=== PATIENT | female | born 1950 | race Caucasian/White ===

== ENCOUNTER 2016-02-19 06:05 | Emergency (ER) | payer BC ==
[~2016-02-19] VITALS: Ht 165.1 cm; Wt 79.5 kg
[~2016-02-19 06:05] MED LIST: CALCIUM + D 5001 TAB PO; CARAFATE 1GM1 G PO; COZAAR50 MG PO; ESTROPIPATE PO; FLUOXETINE20 MG PO; FOSAMAX70 MG PO; HYZAAR 50-12.1 UDTAB PO; LISINOPRIL/HCTZ1 TA2 PO; NEXIUM20 MG PO; OMEGA 31000 MG PO; PRILOSEC 20MG20 MG PO; PROZAC 20MG20 MG PO; REQUIP 0.5MG0.5 MG PO; ZYRTEC10 MG PO
[2016-02-19 06:16] VITALS: TEMP 98.1
[2016-02-19 06:41] LABS: BASO # 0.1 (0.0-0.2); BASO % 0.9 % (0.0-2.0); EOS # 0.2 (0.0-0.7); EOS % 2.2 % (0-4.0); GRAN % 65.7 % (42.2-75.2); HEMOGLOBIN 12.7 g/dl (12.5-16.0); LYMPH # 1.9 (1.2-3.4); MEAN CELL VOLUME 89 fl (80.0-100.0); MEAN CORPUSCULAR HEMOGLOBIN 31 pg (27.0-31.0); MEAN CORPUSCULAR HGB CONC 34 g/dl (33.0-37.0); MONO # 0.5 (0.1-0.6); MONO % 5.9 % (1.7-9.3); PLATELET COUNT 247 K/mm3 (130-400); RED BLOOD COUNT 4.17 M/mm3 (4.10-5.30); REDCELL DISTRIBUTION WIDTH-CV 12.5 % (11.5-14.5); WHITE BLOOD COUNT 7.6 K/mm3 (4.8-10.8)
[2016-02-19 06:51] LABS: ADJUSTED CALCIUM 9.3 mg/dL (8.4-10.2); ALANINE AMINOTRANSFERASE 31 U/L (9-52); ALBUMIN 3.8 gm/dL (3.5-5.0); ALKALINE PHOSPHATASE 70 U/L (50-136); ANION GAP 11 mmol/L (7-16); BILIRUBIN,TOTAL 0.6 mg/dL (0.0-1.0); BLOOD UREA NITROGEN 11 mg/dL (7-17); CALCIUM 9.1 mg/dL (8.4-10.2); CARBON DIOXIDE 25 mmol/L (22-30); CHLORIDE 100 mmol/L (98-107); CREATININE, serum 0.55 mg/dL (0.52-1.25); GLUCOSE 107 mg/dL (74-106); LIPASE 45 U/L (23-300); POTASSIUM 3.8 mmol/L (3.4-5.0); SODIUM 136 mmol/L (137-145); TOTAL PROTEIN 6.5 gm/dL (6.4-8.2)
[2016-02-19 07:03] LABS: TROPONIN-I < 0.012 ng/mL (0.000-0.034)
[2016-02-19] MEDS ORDERED: ZOFRAN8 MG PO (08:56)
[2016-02-19] MEDS ORDERED: ULTRAM 50MG TAB50 MG PO (08:56)
[2016-02-19] MEDS ORDERED: PRIL40 PO (08:56)
[2016-02-19 10:12] VITALS: BP 128/74; PULSE 64
== END 2016-02-19 10:12 | disposition home or self-care (01) ==
LOC: COL.ER 06:05
PROVIDERS: Emergency Medicine
DX: R10.13 Epigastric pain (principal); K57.30 Diverticulosis of large intestine without perforation or abscess without bleeding; K44.9 Diaphragmatic hernia without obstruction or gangrene; I10 Essential (primary) hypertension; Z85.528 Personal history of other malignant neoplasm of kidney; Z90.5 Acquired absence of kidney
CPT/HCPCS: C9113; J1170; Q9967

== ENCOUNTER → 2017-01-14 | Outpatient (CLI) | payer BC ==
[~2017-01-14] MED LIST changes: +PRIL40 PO; +ULTRAM 50MG TAB50 MG PO; +ZOFRAN8 MG PO
== END ==
LOC: MC.RAD 07:56
DX: Z12.31 Encounter for screening mammogram for malignant neoplasm of breast (principal)

== ENCOUNTER → 2017-05-20 | Outpatient (CLI) | payer BC | LOC: COL.RAD 07:51 | DX: Z85.520 Personal history of malignant carcinoid tumor of kidney (principal); I51.7 Cardiomegaly; N28.1 Cyst of kidney, acquired; Z90.49 Acquired absence of other specified parts of digestive tract; Z90.710 Acquired absence of both cervix and uterus; K57.30 Diverticulosis of large intestine without perforation or abscess without bleeding | CPT/HCPCS: Q9967 ==

== ENCOUNTER → 2017-06-15 | Outpatient (CLI) | payer BC | LOC: COL.RAD 09:03 | DX: R93.3 Abnormal findings on diagnostic imaging of other parts of digestive tract (principal); Z98.890 Other specified postprocedural states ==

== ENCOUNTER → 2018-02-18 | Outpatient (CLI) | payer BC | LOC: MC.RAD 11:09 | DX: Z12.31 Encounter for screening mammogram for malignant neoplasm of breast (principal) ==

== ENCOUNTER → 2018-03-22 | Outpatient (CLI) | payer BC | LOC: COL.RAD 13:32 | DX: M48.061 Spinal stenosis, lumbar region without neurogenic claudication (principal); M50.11 Cervical disc disorder with radiculopathy, high cervical region; M25.78 Osteophyte, vertebrae ==

== ENCOUNTER 2018-03-29 08:00 | Outpatient (RCR) | payer BC | END 2018-05-25 | disposition home or self-care (01) | LOC: MKS.ESL.PT | DX: M54.12 Radiculopathy, cervical region (principal) ==

== ENCOUNTER → 2018-03-31 | Outpatient (CLI) | payer BC ==
[~2018-03-31] VITALS: Ht 165.1 cm; Wt 74.8 kg
[2018-03-31 07:24] VITALS: BP 151/91; PULSE 78
[2018-03-31 08:25] VITALS: BP 139/102; PULSE 72
[2018-03-31 08:45] VITALS: BP 138/100; PULSE 70
== END ==
LOC: COL.RAD 07:00
DX: M54.12 Radiculopathy, cervical region (principal)
CPT/HCPCS: J1100

== ENCOUNTER → 2018-04-21 | Outpatient (CLI) | payer BC ==
[~2018-04-21] VITALS: Ht 165.1 cm; Wt 83.3 kg
[2018-04-21 07:28] VITALS: BP 165/94; PULSE 80
[2018-04-21 08:20] VITALS: BP 157/97; PULSE 71
--- NOTE | 2018-04-21 08:48 | NUR ---
went over dc instructions with pt and spouse. verbalized understanding. also asked her to let her doctor know how she is doing since this injection. pt taken to pov and was able to get up with ease. states she was lightheaded when she got off the table but has not experienced that since getting off the table.
== END ==
LOC: COL.RAD 07:00
DX: M54.12 Radiculopathy, cervical region (principal)
CPT/HCPCS: J1100; Q9965

== ENCOUNTER → 2018-05-31 | Outpatient (CLI) | payer BC | LOC: COL.RAD 09:35 | DX: K57.30 Diverticulosis of large intestine without perforation or abscess without bleeding (principal); Z85.520 Personal history of malignant carcinoid tumor of kidney; Z90.49 Acquired absence of other specified parts of digestive tract; Z90.710 Acquired absence of both cervix and uterus | CPT/HCPCS: Q9967 ==

== ENCOUNTER → 2018-12-01 | Outpatient (CLI) | payer BC ==
[~2018-12-01] VITALS: Ht 165.1 cm; Wt 78.5 kg
[2018-12-01 07:14] VITALS: BP 152/85; PULSE 81
[2018-12-01 08:25] VITALS: BP 162/84; PULSE 65
== END ==
LOC: COL.RAD 07:00
DX: M54.12 Radiculopathy, cervical region (principal)
CPT/HCPCS: J1100; Q9965

== ENCOUNTER → 2019-03-20 | Outpatient (CLI) | payer BC | LOC: MC.RAD 10:27 | DX: N63.10 Unspecified lump in the right breast, unspecified quadrant (principal) ==

== ENCOUNTER 2019-04-11 08:06 | Inpatient (IN) | payer BC ==
[~2019-04-11] VITALS: Ht 165.1 cm; Wt 80.0 kg
[2019-04-11 08:52] LABS: BASO # 0.1 (0.0-0.2); BASO % 0.9 % (0.0-2.0); EOS # 0.1 (0.0-0.7); EOS % 2.1 % (0-4.0); GRAN # 3.7 (1.4-6.5); GRAN % 62.9 % (42.2-75.2); HEMATOCRIT 38.5 % (37.0-47.0); HEMOGLOBIN 12.9 g/dl (12.5-16.0); LYMPH # 1.6 (1.2-3.4); LYMPH % 27.5 % (20.0-51.0); MEAN CELL VOLUME 86 fl (80.0-100.0); MEAN CORPUSCULAR HEMOGLOBIN 29 pg (27.0-31.0); MEAN CORPUSCULAR HGB CONC 34 g/dl (33.0-37.0); MEAN PLATELET VOLUME 9.3 fl (7.4-10.4); MONO # 0.4 (0.1-0.6); MONO % 6.3 % (1.7-9.3); PLATELET COUNT 256 K/mm3 (130-400); RED BLOOD COUNT 4.47 M/mm3 (4.10-5.30); REDCELL DISTRIBUTION WIDTH-CV 13.8 % (11.5-14.5)
[2019-04-11 09:06] LABS: ALANINE AMINOTRANSFERASE 17 U/L (9-52); ALBUMIN 4.3 gm/dL (3.5-5.0); ALKALINE PHOSPHATASE 69 U/L (50-136); ANION GAP 10 mmol/L (7-16); AST,SGOT 25 U/L (15-37); BILIRUBIN,TOTAL 0.5 mg/dL (0.0-1.0); BLOOD UREA NITROGEN 12 mg/dL (7-17); CALCIUM 8.9 mg/dL (8.4-10.2); CARBON DIOXIDE 25 mmol/L (22-30); CHLORIDE 102 mmol/L (98-107); GLUCOSE 98 mg/dL (74-106); MAGNESIUM 1.9 mg/dL (1.6-2.3); POTASSIUM 3.7 mmol/L (3.4-5.0); SODIUM 137 mmol/L (137-145)
[2019-04-11 09:18] LABS: TROPONIN-I < 0.012 ng/mL (0.000-0.035)
[2019-04-11 10:01] LABS: COLLECTION METHOD CLEAN CATCH
[2019-04-11 10:09] LABS: PH 7 (5-8); SQUAMOUS EPITHELIAL 0-2 /hpf; URINE APPEARANCE Clear; URINE BACTERIA None Seen /hpf; URINE BILIRUBIN Negative (NEGATIVE); URINE BLOOD Negative (NEGATIVE); URINE COLOR Straw; URINE GLUCOSE Negative (NEGATIVE); URINE KETONE Negative (NEGATIVE); URINE LEUKOCYTE ESTERASE Negative (NEGATIVE); URINE NITRATE Negative (NEGATIVE); URINE PROTEIN(semi-quant) Negative (NEGATIVE); URINE RBC 0-2 /hpf; URINE UROBILINOGEN Negative (NEGATIVE)
--- NOTE | 2019-04-11 16:06 | NUR ---
Patient brought to medical unit from ER at 1515. Patient is awake and ambulates easily from cot to bed. Patient is oriented x4 and is able to recall what brought her to the hospital. She says she woke up and remembers letting the dogs out and coughing so much she almost vomited. She does not recall being brought to the hospital, having and IV started or the CT test. She does not complain of any pain, pulses are 2/2, hand scrubbing machine operator are equal and pupils are PERRLA. I noted mild edema in both lower extremities but it is not significant. NS started at 125 ml/hr per Dr's orders. Snacks and water provided. Neuro consult called to Dr. Pringle's office.
--- NOTE | 2019-04-11 17:52 | NUR ---
Anh has been resting in bed since arrival to the unit. Since she has been here, we have started fluids, administered IV thiamine and provided comfort measures as requested. Her , Sameer currently sits at the bedside.
[2019-04-11 18:26] VITALS: BP 138/80; PULSE 70; TEMP 98.6
[2019-04-11 20:14] VITALS: BP 124/65; PULSE 68; TEMP 98.4
--- NOTE | 2019-04-11 22:00 | NUR ---
Shift assessment complete. Patient in bed, awake. Ambulated to BR with standby assist. A/O x4. Denies pain. IVF stopped per pt request. Will notify Elizabeth, LABEL PRINTER for possible d/c order. Denies further needs at this time. Will continue to monitor.
[2019-04-11 23:13] VITALS: BP 152/74; PULSE 67; TEMP 98.3
[2019-04-12 03:36] VITALS: BP 146/76; PULSE 71; TEMP 97.7
[2019-04-12 07:33] LABS: BASO # 0.1 (0.0-0.2); EOS # 0.1 (0.0-0.7); EOS % 2.3 % (0-4.0); GRAN % 51.4 % (42.2-75.2); HEMATOCRIT 38.8 % (37.0-47.0); HEMOGLOBIN 12.7 g/dl (12.5-16.0); LYMPH # 2.2 (1.2-3.4); LYMPH % 37.6 % (20.0-51.0); MEAN CELL VOLUME 87 fl (80.0-100.0); MEAN CORPUSCULAR HEMOGLOBIN 28 pg (27.0-31.0); MEAN CORPUSCULAR HGB CONC 33 g/dl (33.0-37.0); MEAN PLATELET VOLUME 9.5 fl (7.4-10.4); MONO # 0.4 (0.1-0.6); MONO % 7.5 % (1.7-9.3); PLATELET COUNT 259 K/mm3 (130-400); RED BLOOD COUNT 4.47 M/mm3 (4.10-5.30); REDCELL DISTRIBUTION WIDTH-CV 13.7 % (11.5-14.5)
[2019-04-12 07:42] VITALS: BP 138/81; PULSE 75; TEMP 98.3
[2019-04-12 07:54] LABS: BILIRUBIN,TOTAL 0.5 mg/dL (0.0-1.0); CALCIUM 8.6 mg/dL (8.4-10.2); CREATININE, serum 0.53 (0.52-1.25); POTASSIUM 3.6 mmol/L (3.4-5.0); TOTAL PROTEIN 6.6 gm/dL (6.4-8.2)
--- NOTE | 2019-04-12 08:00 | NUR ---
Patient report recieved from manufacturing shift supervisor RN, Sophia. Patient is awake at time of assessment, resting in bed. She voices concerns of a rash which developed on the dorsal side of her L hand overnight. This RN assessed her back, stomach and lower extremities for evidence of more rash and found a very small patch on the top of her R foot. The patient says the rash does not itch and she does have any other symptoms. Her respirations are unlabored and even and her heart sounds are normal. 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 Patient complains of sinus headache and Tylenol is administered.
--- NOTE | 2019-04-12 09:14 | NUR ---
Patient reported that she was developing a rash to her right hand which when observed was noticed to cover the entire top side of the hands and all the fingers. There is also a small rash developing on the right hand. Did assess back and legs, a small oval area on the top of the right foot is noted and patient states that is abnormal for her. Patient reports that the rash is not causing any itching. Skin temperature is normal. Patient reports that she feels swollen which is unusual for her. She states it is most likely due to being in bed so much. She was notified that she is welcome to ambulate in the hallway if desired. Did speak with Dr. Moncada regarding the rash. Reviewed medications with patient and everything oral is the same for her besides the new order for plavix which the first dose is started today. Thiamine and contrast was the only new administered meds. She was due for MRI with contrast and it was discussed that maybe patient should not have the MRI. Dr Moncada did discontinue the order. Notified patient and she stated she would really like to have the testing done. Spoke with Dr. Moncada regarding this and MRI was reordered and premedication order was placed. Did notify patient regarding this and she was relieved.
--- NOTE | 2019-04-12 10:15 | NUR ---
Received call from MRI, patient will be picked up for MRI soon. Ordered pre medication was administered.
--- NOTE | 2019-04-12 12:36 | NUR ---
Initial visit; Patient out of room, Lozenge Dough Mixer spoke with who thanked Lozenge Dough Mixer for looking in on them and letting them know of the availability of spiritual care.
[2019-04-12 12:59] VITALS: BP 155/83; PULSE 57; TEMP 97.4
--- NOTE | 2019-04-12 17:00 | NUR ---
Patient discharged at this time today. She is ambulated to the front door, accompanied by this RN and her . IV discontinued, Tele monitor off, and discharge education reviewed. Today, this patient had an MRI of the brain with contrast and an EEG. Her neuro status has been stable and baseline throughout the day and her only concern at discharge is making an appointment with ELIZABETH. She spoke personally with Dr. Moncada about this issue prior to walking out of the hospital and has no further concerns.
--- NOTE | 2019-04-12 17:12 | NUR ---
Lecturer In Computer Science met with patient to discuss discharge planning. Patient lives in [place] with her Sameer (ph#[phone]) and sees Dr. Qiu for primary care. Patient obtains medications from [facility] with no difficulties. Patient has a CPAP but does not use it. Patient has no other DME and is independent with ADLS. Patient reports she has DPOA-HC which designates her then her daughter Theresa. Patient plans to return home upon discharge. No additional concerns at this time.
== END 2019-04-12 17:00 | disposition home or self-care (01) | DRG 72 ==
LOC: COL.ER 08:06 → MEDICAL 13:23
PROVIDERS: Emergency Medicine; ADMIT Student in an Organized Health Care Education/Training Program
DX: G45.4 Transient global amnesia (principal); K21.9 Gastro-esophageal reflux disease without esophagitis; I10 Essential (primary) hypertension; G25.81 Restless legs syndrome; I72.0 Aneurysm of carotid artery; F41.9 Anxiety disorder, unspecified; Z90.49 Acquired absence of other specified parts of digestive tract; Z90.710 Acquired absence of both cervix and uterus; Z90.5 Acquired absence of kidney; Z87.891 Personal history of nicotine dependence; Z86.73 Personal history of transient ischemic attack (TIA), and cerebral infarction without residual deficits
CPT/HCPCS: 99222-AI; 99239; A9585; J3411; J7030; Q9967

== ENCOUNTER → 2019-07-25 | Outpatient (CLI) | payer BC | LOC: MHCPAIN 14:30 | DX: M47.812 Spondylosis without myelopathy or radiculopathy, cervical region (principal); M54.2 Cervicalgia; R51 Headache; G89.29 Other chronic pain; M54.12 Radiculopathy, cervical region | CPT/HCPCS: G0463 ==

== ENCOUNTER → 2019-09-25 | Outpatient (CLI) | payer BC | LOC: COL.RAD 13:17 | DX: E05.90 Thyrotoxicosis, unspecified without thyrotoxic crisis or storm (principal) | CPT/HCPCS: A9516 ==

== ENCOUNTER → 2019-10-11 | Outpatient (CLI) | payer BC | LOC: ZCOL.LAB 18:38 | DX: U07.1 COVID-19 (principal) ==

== ENCOUNTER 2019-11-21 12:26 | Inpatient (IN) | payer BC ==
[~2019-11-21] VITALS: Ht 165.1 cm; Wt 82.1 kg
[2019-12-06] VITALS (14 sets, daily range): BP systolic 125–157; BP diastolic 57–95; PULSE 65–87; TEMP 97.4–98.2
[2019-12-06] MEDS ORDERED: HYZAAR 25 MG-101 TAB PO (08:06)
[2019-12-06] MEDS ORDERED: TOPROL XL 25MG25 MG PO (08:06)
[2019-12-06] MEDS ORDERED: PROZAC 20MG20 MG PO (08:07)
[2019-12-06] MEDS ORDERED: LYRICA 75MG CAP75 MG PO (08:07)
[2019-12-06] MEDS ORDERED: REQUIP 1MG T1 MG/TAB PO (08:08)
[2019-12-06] MEDS ORDERED: PRILOSEC 20MG20 MG PO (08:09)
[2019-12-06] MEDS ORDERED: TAPAZOLE5 MG PO (08:09)
--- NOTE | 2019-12-06 14:59 | NUR ---
Patient resting in bed. Pain better managed now. Ca level was called to at 8.4. Neck dressing clean dry & intact. Patient has been up to the bathroom & voided. Tolerating diet without nasuea. Vitals stable
--- NOTE | 2019-12-06 16:14 | NUR ---
PATIENT RATING PAIN 2/10. DENIES THE NEED FOR PAIN MEDICATION. WATCHING TV. HEAD OF BED 30 DEGREES. DENIES ICE PACK. READY FOR DINNER.
--- NOTE | 2019-12-06 18:13 | NUR ---
Patient reports headache. one tab ultram for pain per request. She reports some difficulty with swallowing, but chewed her food well and was able to eat.
--- NOTE | 2019-12-06 19:53 | NUR ---
Tylenol for continued headache.
--- NOTE | 2019-12-06 21:59 | NUR ---
Patient has minimal complaints of pain stating it is tolerable. Patient is resting comfortably in bed. Head of bed is elevated about 25 degrees.
[2019-12-07 04:00] VITALS: BP 132/63; PULSE 67; TEMP 97.8
[2019-12-07 07:23] VITALS: BP 125/65; PULSE 69; TEMP 98.2
--- NOTE | 2019-12-07 09:35 | NUR ---
Yard Spotter met with patient to discuss discharge planning. Patient lives in [place] with her , Abhi (ph#[phone]) and their three dogs. Patient sees Dr. Burrows for primary care and obtains medications from [facility] with no difficulties. Patient does not use any DME and reports independence with ADLS. Patient has DPOA[facility]HC located in [facility] which designate her , Abhi and her daughter, Theresa. Patient plans to return home with her at discharge. SW contacted patient's , Abhi who has no concerns about patient returning home whenever she is ready for discharge. SW will continue to follow as needed.
[2019-12-07 12:00] VITALS: BP 128/65; PULSE 64; TEMP 99.2
--- NOTE | 2019-12-07 13:54 | NUR ---
Initial visit; Patient thanked Communication And Outreach Manager for looking in on her and offering God's blessings.
[2019-12-07 16:03] VITALS: BP 134/85; PULSE 69; TEMP 98
[2019-12-07] MEDS ORDERED: TUMS EXTRA STR750 MG PO ×2 (17:08→17:10)
[2019-12-07] MEDS ORDERED: NORCO 325 MG-51 TAB PO (17:08)
[2019-12-07] MEDS ORDERED: SYNTHROID0.075 MG/T PO (17:09)
--- NOTE | 2019-12-07 18:00 | NUR ---
Patient has done well throughout the day, has been up ambulating in halls independently. Tolerating diet without difficulties. Denies pain throughout the day. Incision to neck is CDI. Discharge education provided to patient. Educated on all new medications and scheduling follow up appointments. Educated on lab draw. All questions answered. INT discontinued. Patient ambulated out with surgical staff.
== END 2019-12-07 18:00 | disposition home or self-care (01) | DRG 627 ==
LOC: SURG 12-06 06:56 → INPTSU 12-06 06:56 → SURG 12-06 09:00
PROVIDERS: ADMIT Surgery
PROC: 0GTK0ZZ Resection of Thyroid Gland, Open Approach (ICD-10-PCS; principal; 2019-12-06 09:00)
DX: E05.20 Thyrotoxicosis with toxic multinodular goiter without thyrotoxic crisis or storm (principal); I10 Essential (primary) hypertension; G47.30 Sleep apnea, unspecified; Z85.528 Personal history of other malignant neoplasm of kidney
CPT/HCPCS: J0690; J1100; J1170; J2370; J2405; J2704; J3010; J7050; J7120

== ENCOUNTER → 2020-03-22 | Outpatient (CLI) | payer MEDICARE ==
[~2020-03-22] MED LIST changes: +HYZAAR 25 MG-101 TAB PO; +LYRICA 75MG CAP75 MG PO; +NORCO 325 MG-51 TAB PO; +REQUIP 1MG T1 MG/TAB PO; +SYNTHROID0.075 MG/T PO; +TAPAZOLE5 MG PO; +TOPROL XL 25MG25 MG PO; +TUMS EXTRA STR750 MG PO
== END ==
LOC: MC.RAD 08:28
DX: Z12.31 Encounter for screening mammogram for malignant neoplasm of breast (principal)

== ENCOUNTER 2020-03-28 09:38 | Outpatient (RCR) | payer MEDICARE | END 2020-06-26 | disposition home or self-care (01) | LOC: WSST | DX: R13.14 Dysphagia, pharyngoesophageal phase (principal) ==

== ENCOUNTER → 2020-04-02 | Outpatient (CLI) | payer MEDICARE | LOC: COL.RAD 08:06 | DX: R13.12 Dysphagia, oropharyngeal phase (principal) ==

== ENCOUNTER → 2020-06-12 | Outpatient (CLI) | payer MEDICARE | LOC: COL.RAD 07:33 | DX: R11.2 Nausea with vomiting, unspecified (principal) | CPT/HCPCS: A9541 ==

== ENCOUNTER 2021-03-17 08:49 | Emergency (ER) | payer MEDICARE ==
[~2021-03-17] VITALS: Ht 165.1 cm; Wt 79.5 kg
[2021-03-17 10:16] LABS: BASO # 0.1 K/mm3 (0.0-0.2); BASO % 1.6 % (0.0-2.0); EOS # 0.2 K/mm3 (0.0-0.7); GRAN # 3.6 K/mm3 (1.4-6.5); GRAN % 63.3 % (42.2-75.2); HEMATOCRIT 37.9 % (37.0-47.0); HEMOGLOBIN 12.6 g/dl (12.5-16.0); LYMPH # 1.4 K/mm3 (1.2-3.4); LYMPH % 24.3 % (20.0-51.0); MEAN CELL VOLUME 96 fl (80.0-100.0); MEAN CORPUSCULAR HEMOGLOBIN 32 pg (27-31); MEAN CORPUSCULAR HGB CONC 33 g/dl (33.0-37.0); MEAN PLATELET VOLUME 8.5 fl (7.4-10.4); MONO # 0.4 K/mm3 (0.1-0.6); MONO % 6.3 % (1.7-9.3); PLATELET COUNT 378 K/mm3 (130-400); RED BLOOD COUNT 3.97 M/mm3 (4.10-5.30)
[2021-03-17 10:23] LABS: ALANINE AMINOTRANSFERASE 12 U/L (0-55); ALBUMIN 3.7 gm/dL (3.4-4.8); ALKALINE PHOSPHATASE 63 U/L (40-150); ANION GAP 10 mmol/L (7-16); AST,SGOT 13 U/L (5-34); BILIRUBIN,TOTAL 0.7 mg/dL (0.2-1.2); BLOOD UREA NITROGEN 12 mg/dL (10-20); CALCIUM 8.9 mg/dL (8.4-10.2); CARBON DIOXIDE 27 mmol/L (23-31); CHLORIDE 99 mmol/L (98-107); CREATININE, serum 0.67 mg/dL (0.57-1.11); GLUCOSE 111 mg/dL (70-99); LIPASE 19 U/L (8-78); POTASSIUM 3.8 mmol/L (3.5-4.5); SODIUM 136 mmol/L (136-145); TOTAL PROTEIN 6.4 gm/dL (6.2-8.1)
[2021-03-17 10:30] LABS: TROPONIN-I < 0.010 ng/mL (0.00-0.033)
[2021-03-17 14:10] VITALS: BP 161/90; PULSE 66; TEMP 97.6
[2021-03-17 14:21] LABS: COLLECTION METHOD CLEAN CATCH
[2021-03-17 14:36] LABS: PH 6 (5-8); SQUAMOUS EPITHELIAL 0-2 /hpf (0-10); URINE APPEARANCE Clear (CLEAR/HAZY); URINE BACTERIA None Seen /hpf (NONE SEEN); URINE BILIRUBIN Negative (NEGATIVE); URINE BLOOD Negative (NEGATIVE); URINE COLOR Yellow (YELLOW); URINE GLUCOSE Negative (NEGATIVE); URINE KETONE Negative (NEGATIVE); URINE LEUKOCYTE ESTERASE Negative (NEGATIVE); URINE NITRATE Negative (NEGATIVE); URINE PROTEIN(semi-quant) Negative (NEGATIVE); URINE RBC 0-2 /hpf (0-2); URINE UROBILINOGEN Negative (NEGATIVE)
== END 2021-03-17 14:15 | disposition home or self-care (01) ==
LOC: COL.ER 08:49
PROVIDERS: Emergency Medicine
DX: R07.89 Other chest pain (principal); I10 Essential (primary) hypertension; E03.9 Hypothyroidism, unspecified; K21.9 Gastro-esophageal reflux disease without esophagitis; Z87.891 Personal history of nicotine dependence; Z20.822 Contact with and (suspected) exposure to COVID-19; Z79.890 Hormone replacement therapy; Z79.82 Long term (current) use of aspirin; Z79.899 Other long term (current) drug therapy
CPT/HCPCS: Q9967

== ENCOUNTER → 2021-04-02 | Outpatient (CLI) | payer MEDICARE | LOC: MC.RAD 09:29 | DX: Z12.31 Encounter for screening mammogram for malignant neoplasm of breast (principal) ==

== ENCOUNTER → 2022-04-28 | Outpatient (CLI) | payer MEDICARE | LOC: MC.RAD 14:10 | DX: Z12.31 Encounter for screening mammogram for malignant neoplasm of breast (principal) ==